=== PATIENT | male | born 1980 | race Caucasian/White ===

== ENCOUNTER 2022-11-15 15:07 | Emergency (ER) | payer SELFPAY ==
[2022-11-15 15:11] VITALS: BP 125/87; PULSE 95; RESP 18; TEMP 37.3; O2SAT 99
[2022-11-15 17:21] VITALS: BP 114/74; PULSE 83; RESP 18; O2SAT 98
--- NOTE | 2022-11-15 17:30 | ED.GENADUL_ITS ---
Discharge Plan Disposition Patient Disposition: Home Condition: Stable Discharge Details Clinical Impression: Epicondylitis, lateral, right Primary Care Provider: [place],Local ED Provider: Alka Lorenzo Home Meds and New Rx's Prescriptions: New tramadol 50 mg tablet 50 mg PO BID PRN (Reason: pain) Qty: 7 0RF Rx Instructions: Take 1 tablet twice daily as needed for moderate to severe pain. Discharge Instructions Instructions: Tennis Elbow (ED) Additional Instructions: Rest, ice, compression. Use the sling as needed for comfort. I do suspect that you have a tendinopathy in your elbow. Please take the stronger pain medication as needed for sleep. You may follow-up with PCP and or physical therapy. A referral was placed for you. If you rest this will get better faster. Please take Tylenol or Ibuprofen with food every 4-6 hours as needed for pain and swelling. Stand Alone Forms: Physical Therapy Referral Discharge Data Discharge Date/Time-TO BE ENTERED AT DEPARTURE: 11/15/22 18:53 Medical Decision Making 41-year-old male presents to the ER with chief complaint of right elbow pain with radiation up into his shoulder and down into his wrist which has been ongoing for a week. 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 Denies any significant injuries. No erythema warmth or swelling noted. He reports that he has been trying Tylenol ibuprofen ice and he is having trouble sleeping due to the pain. Denies any neck pain or any other associated symptoms. X-ray ordered. Differential diagnosis includes not limited to stress fracture, occult fracture, tennis elbow, sprain, tendinitis, overuse injury. X-ray within normal limits. I do suspect tennis elbow due to pain with pronation supination flexion extension and pinpoint to the lateral epicondyles. Sling ordered, patient given tramadol for moderate to severe pain and instructed on RICE procedures and rest. Physical therapy referral also given. This text was generated using [email or web address], please disregard any oddities of phrase or misspellings. Imaging Data Radiologic Study: Imaging: X-Ray Radiologist's impression: TECHNIQUE: Imaging protocol: Radiologic exam of the right elbow. Views: 3 or more views. COMPARISON: No relevant prior studies available. FINDINGS: Bones/joints: Normal. Soft tissues: Normal. IMPRESSION: No acute findings. Thank you for allowing us to participate in the care of your patient. Dictated and Authenticated by: Navi Fisher MD [facility] General Mode of arrival: ambulatory . Date/Time Provider Initiated Documentation: 11/15/22 15:44 . Limitations to Documentation: no limitations . Information obtained by: patient, RN notes reviewed and old records reviewed . HPI Narrative: 41-year-old male presents to the ER with chief complaint of right elbow pain with radiation up into his shoulder and down into his wrist which has been ongoing for a week. 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 Denies any significant injuries. No erythema warmth or swelling noted. He reports that he has been trying Tylenol ibuprofen ice and he is having trouble sleeping due to the pain. Denies any neck pain or any other associated symptoms. Related Data Home Medications Medication Instructions Recorded Confirmed tramadol 50 mg tablet 50 mg PO BID PRN pain #7 tabs 11/15/22 Previous Rx's Medication Instructions Recorded tramadol 50 mg tablet 50 mg PO BID PRN pain #7 tabs 11/15/22 Allergies Allergy/AdvReac Type Severity Reaction Status Date / Time No Known Allergies Allergy Unverified 11/15/22 15:13 General Stated Complaint: Orthopedic LESLIE: 4 Review of Systems All systems reviewed & are unremarkable except as noted in HPI and below ENT Ears, Nose, Mouth, and Throat: Denies neck pain Musculoskeletal Musculoskeletal: Reports as per HPI, Reports arthralgias, Denies neck pain, Reports numbness and Reports radiating pain into limb Neurologic Neurologic: Reports numbness PFSH All Active Problems (Updated 11/15/22 @ 18:37 by Alka Lorenzo NP) Epicondylitis, lateral, right (Acute) Social History Smoking/Tobacco Use Status: Never Smoking risk assessment performed?: Yes Do you feel safe at home: Yes Do you feel safe in your relationship?: Yes Exam Back/Spine/Pelvis Back: no CVA tenderness Cervical Spine: normal cervical lordosis and No cervical spinal tenderness Extrem General: normal to inspection Right upper extremity: normal to inspection and elbow/forearm Details: tenderness Location: of the lateral epicondyle Details: with resisted supination and with resisted pronation and proximal forearm Left upper extremity: normal to inspection Course Vital Signs Vital signs: Vital Signs Temperature 37.3 C 11/15/22 15:11 Pulse 95 H 11/15/22 15:11 Respiratory Rate 18 11/15/22 15:11 Blood Pressure 125/87 11/15/22 15:11 Pulse Oximetry 99 11/15/22 15:11 Temperature 37.3 C 11/15/22 15:11 Temperature Source Skin 11/15/22 15:11 Pulse 83 11/15/22 17:21 Respiratory Rate 18 11/15/22 17:21 Respiratory Effort Normal 11/15/22 17:16 Blood Pressure 114/74 11/15/22 17:21 Pulse Oximetry 98 11/15/22 17:21 Oxygen Delivery Method Room Air 11/15/22 17:21 Oxygen Flow Rate 0 11/15/22 17:21 Pain Level 8 11/15/22 17:21
--- NOTE | 2022-11-15 17:30 | DI.RAD_ITS ---
Exam(s) XR ELBOW RT COMPLETE EXAM: XR ELBOW RT COMPLETE CLINICAL HISTORY: Pain. TECHNIQUE: 2D digital imaging was performed. Three views. COMPARISON: No exams were available for comparison FINDINGS: BONES: No acute fracture is present. No bony destructive lesion is seen. JOINTS: The elbow is normally aligned. No joint effusion is seen. SOFT TISSUE: Normal. IMPRESSION: Unremarkable radiographs of the right elbow. DATA REPOSITORY: RADIATION DOSE DELIVERED:
[2022-11-15 17:54] VITALS: BP 124/83; PULSE 74
--- NOTE | 2022-11-15 18:10 | DI.VRAD_ITS ---
PROCEDURE INFORMATION: Exam: XR Right Elbow Exam date and time: 11/15/2022 6:00 PM Age: 41 years old Clinical indication: Pain; Elbow; Right TECHNIQUE: Imaging protocol: Radiologic exam of the right elbow. Views: 3 or more views. COMPARISON: No relevant prior studies available. FINDINGS: Bones/joints: Normal. Soft tissues: Normal. IMPRESSION: No acute findings. Dictated and Authenticated by: Navi Fisher MD. Ordering:CATINA Rucker MD
[2022-11-15] MEDS: Lidocaine 5% Patch 1 PATCH TP (18:14)
[2022-11-15] MEDS: Ketorolac 60 MG/2 ML VIAL IM (18:14)
== END 2022-11-15 18:53 | disposition home or self-care (01) ==
PROVIDERS: Emergency Provider Registered Nurse Emergency
DX: M77.11 Lateral epicondylitis, right elbow (principal)
CPT/HCPCS: 96372; 99284; 73080; J1885